=== PATIENT | female | born 1970 | race African-American/Black ===

== ENCOUNTER 2018-12-07 19:26 | Emergency (ER) | payer OTHER ==
[~2018-12-07] VITALS: Ht 162.6 cm; Wt 108.9 kg
[~2018-12-07 19:26] MED LIST: BACTRIM DS TAB1 EACH PO; MOBIC15 MG PO; NORCO 5-325 TA1 EACH PO; TYLENOL325 MG PO
[2018-12-07] MEDS ORDERED: MOBIC7.5 MG PO (21:27)
[2018-12-07] MEDS ORDERED: PREDNISONE 20 M20 MG PO (21:27)
[2018-12-07 22:14] VITALS: BP 150/96
== END 2018-12-07 22:14 | disposition home or self-care (01) ==
LOC: ER 19:26
DX: M25.461 Effusion, right knee (principal); I10 Essential (primary) hypertension

== ENCOUNTER 2019-10-13 23:21 | Emergency (ER) | payer BC ==
[~2019-10-13] VITALS: Ht 162.6 cm; Wt 104.3 kg
[~2019-10-13 23:21] MED LIST changes: +MOBIC7.5 MG PO; +PREDNISONE 20 M20 MG PO
[2019-10-13] MEDS ORDERED: AMARYL2 M1 PO (23:30)
[2019-10-13] MEDS ORDERED: HYDROCHLOROTHIA25 M2 PO (23:30)
[2019-10-14] MEDS ORDERED: TRAMADOL 50 MG50 MG PO (00:53)
[2019-10-14] MEDS ORDERED: IBUPROFEN 800800 MG PO (00:53)
[2019-10-14 01:07] VITALS: BP 145/81
== END 2019-10-14 01:08 | disposition home or self-care (01) ==
LOC: ER 23:21
DX: M17.0 Bilateral primary osteoarthritis of knee (principal); I10 Essential (primary) hypertension; F17.210 Nicotine dependence, cigarettes, uncomplicated

== ENCOUNTER 2021-10-31 18:50 | Emergency (ER) | payer OTHER ==
[~2021-10-31] VITALS: Ht 162.6 cm; Wt 101.6 kg
[~2021-10-31 18:50] MED LIST changes: +AMARYL2 M1 PO; +HYDROCHLOROTHIA25 M2 PO; +IBUPROFEN 800800 MG PO; +TRAMADOL 50 MG50 MG PO
[2021-10-31 19:24] LABS: URINE BILIRUBIN NEGATIVE (Negative); URINE BLOOD NEGATIVE (Negative); URINE CLARITY SL CLOUDY; URINE COLOR YELLOW; URINE GLUCOSE-RANDOM* NEGATIVE (Negative); URINE KETONES 1+ (Negative); URINE LEUKOCYTES-REFLEX TRACE (Negative); URINE NITRITE-REFLEX NEGATIVE (Negative); URINE PROTEIN (DIPSTICK) NEGATIVE (Negative); URINE SPECIFIC GRAVITY 1.015 (1.005-1.035); URINE UROBILINOGEN 0.2 E.U./dl (0.2-1.0)
[2021-10-31] MEDS ORDERED: LOSARTAN POTASS50 MG PO (19:32)
[2021-10-31] MEDS ORDERED: NEURONTIN 300M300 M2 PO (19:32)
[2021-10-31 19:39] LABS: ABSOLUTE NEUTROPHILS 6.4 thou/uL (1.4-8.2); BASOPHILS 0.6 % (0.0-2.0); EOSINOPHILS 0.1 % (0.0-3.0); HEMATOCRIT 41.7 % (37.0-47.0); LYMPHOCYTES 15.7 % (24.0-44.0); MCHC 33.6 g/dL (28.0-37.0); MCV 89.1 fL (80.0-100.0); MONOCYTES 4.1 % (1.0-8.0); PLATELET COUNT 420 thou/uL (150-400); POLYS 79.5 % (36.0-66.0); RBC 4.68 mil/uL (4.20-5.00); RDW 13.4 % (10.5-14.5)
[2021-10-31 19:40] LABS: SSA (PROTEIN CONFIRMATORY) NEGATIVE (Negative)
[2021-10-31 19:46] LABS: CALCIUM 9.7 mg/dL (8.5-10.1); CREATININE 1.4 mg/dL (0.6-1.0)
[2021-10-31 19:53] LABS: ALBUMIN 3.8 g/dL (3.4-5.0); TOTAL BILIRUBIN 0.6 mg/dL (0.2-1.0); TOTAL PROTEIN 8.8 g/dL (6.4-8.2)
[2021-10-31] MEDS ORDERED: METRONIDAZOLE500 M4 PO (20:46)
[2021-10-31] MEDS ORDERED: APAP W/CODEINE1 TA2 PO (20:46)
[2021-10-31] MEDS ORDERED: LEVAQUIN 500 M500 MG PO (20:46)
[2021-10-31] MEDS ORDERED: ZOFRAN ODT4 MG PO (20:46)
[2021-10-31 21:45] VITALS: BP 178/87
== END 2021-10-31 21:40 | disposition home or self-care (01) ==
LOC: ER 18:50
PROVIDERS: Emergency Medicine
DX: K57.92 Diverticulitis of intestine, part unspecified, without perforation or abscess without bleeding (principal); N28.89 Other specified disorders of kidney and ureter; I10 Essential (primary) hypertension; M19.90 Unspecified osteoarthritis, unspecified site; F17.210 Nicotine dependence, cigarettes, uncomplicated; Z90.49 Acquired absence of other specified parts of digestive tract; Z79.891 Long term (current) use of opiate analgesic; Z79.899 Other long term (current) drug therapy

== ENCOUNTER 2021-11-02 12:55 | Emergency (ER) | payer OTHER ==
[~2021-11-02] VITALS: Ht 162.6 cm; Wt 102.1 kg
[~2021-11-02 12:55] MED LIST changes: +APAP W/CODEINE1 TA2 PO; +LEVAQUIN 500 M500 MG PO; +LOSARTAN POTASS50 MG PO; +METRONIDAZOLE500 M4 PO; +NEURONTIN 300M300 M2 PO; +ZOFRAN ODT4 MG PO
[2021-11-02 14:58] LABS: ABSOLUTE NEUTROPHILS 5.4 thou/uL (1.4-8.2); BASOPHILS 0.9 % (0.0-2.0); EOSINOPHILS 0.1 % (0.0-3.0); HEMATOCRIT 43.9 % (37.0-47.0); HEMOGLOBIN 14.5 gm/dL (12.0-15.0); MCH 29.6 pg (26.0-34.0); MCHC 33.1 g/dL (28.0-37.0); MCV 89.4 fL (80.0-100.0); MONOCYTES 4.9 % (1.0-8.0); PLATELET COUNT 428 thou/uL (150-400); POLYS 77.1 % (36.0-66.0); RBC 4.91 mil/uL (4.20-5.00); RDW 13.8 % (10.5-14.5); WBC 6.9 thou/uL (4.0-11.0)
[2021-11-02 15:14] LABS: CALCIUM 9.5 mg/dL (8.5-10.1); CREATININE 1.5 mg/dL (0.6-1.0)
[2021-11-02 15:21] LABS: ALBUMIN 4.1 g/dL (3.4-5.0); TOTAL BILIRUBIN 0.6 mg/dL (0.2-1.0); TOTAL PROTEIN 9.1 g/dL (6.4-8.2)
[2021-11-02 18:17] LABS: URINE BILIRUBIN NEGATIVE (Negative); URINE BLOOD NEGATIVE (Negative); URINE CLARITY CLEAR; URINE COLOR YELLOW; URINE GLUCOSE-RANDOM* NEGATIVE (Negative); URINE KETONES TRACE (Negative); URINE LEUKOCYTES-REFLEX NEGATIVE (Negative); URINE NITRITE-REFLEX NEGATIVE (Negative); URINE PROTEIN (DIPSTICK) NEGATIVE (Negative); URINE UROBILINOGEN 0.2 E.U./dl (0.2-1.0)
[2021-11-02] MEDS ORDERED: PHENERGAN 25 MG25 M1 PO (19:10)
[2021-11-02] MEDS ORDERED: NORCO 10-325 T1 EACH PO (19:10)
== END 2021-11-02 17:18 | disposition home or self-care (01) ==
LOC: ER 12:55
PROVIDERS: Emergency Medicine
DX: K57.92 Diverticulitis of intestine, part unspecified, without perforation or abscess without bleeding (principal); R10.11 Right upper quadrant pain; I10 Essential (primary) hypertension; M19.90 Unspecified osteoarthritis, unspecified site; F17.210 Nicotine dependence, cigarettes, uncomplicated; F12.90 Cannabis use, unspecified, uncomplicated; Z79.891 Long term (current) use of opiate analgesic; Z79.899 Other long term (current) drug therapy; Z79.1 Long term (current) use of non-steroidal anti-inflammatories (NSAID)